=== PATIENT | male | born 1995 | race Caucasian/White ===

== ENCOUNTER → 2017-07-20 | Day surgery (SDC) | payer MEDICAID ==
[~2017-07-20] MED LIST: NORCO 5-325 TA1 EACH PO
--- NOTE | 2017-07-27 08:34 | OP ---
[address] [address] OPERATIVE REPORT Name: ALINE FITZGERALD Room: [facility]#: [id number] Admission: 07/20/17 Attend Phys: Sundeep Posada II Discharge: Date of : 89 Report #: [id number] THIS REPORT FOR: //name// CC: JOSE physician/PCP Sundeep Posada DATE OF SERVICE: 07/20/2017 PREOPERATIVE DIAGNOSES: 1. Right comminuted and displaced fracture of the base of the fourth metacarpal. 2. Fracture dislocation of the fifth metacarpal base. POSTOPERATIVE DIAGNOSES: 1. Right comminuted and displaced fracture of the base of the fourth metacarpal. 2. Fracture dislocation of the fifth metacarpal base. PROCEDURE: 1. Closed reduction with percutaneous pinning of comminuted displaced fourth metacarpal base fracture. 2. Closed reduction fracture dislocation of the fifth metacarpal base. SURGEON: Sundeep Posada II, DO. TRUCK CLEANER: ROSARIO Olmedo. ANESTHESIA: Per operative record. ESTIMATED BLOOD LOSS: Minimal. ANTIBIOTICS: Per operative record. DRAINS: None. COMPLICATIONS: None. CONDITION: Stable to recovery room. IMPLANTS USED: A 0.062 K-wire and Jurgan ball. DESCRIPTION OF PROCEDURE: The patient was taken to the operative suite carefully, placed supine on the operative table and given appropriate anesthesia. The patient had a well-padded tourniquet applied to the upper extremity, which was not inflated. Surgery began by evaluation of the hand and x-ray views of the fractures and dislocated areas. [place] [address] OPERATIVE REPORT Name: ALINE FITZGERALD Room: [facility].#: [id number] Admission: 07/20/17 Attend Phys: Sundeep Posada II Discharge: Date of : 89 Report #: [id number] reduction was then attempted closed of the 4th and 5th metacarpal fractures. The fifth metacarpal fracture reduced very well in alignment. Continued pressure encouraged the fourth metacarpal to reduce; however, there was still some instability at this fracture site due to its comminuted nature. Utilizing a 0.062 K wire, this was introduced through the distal portion of the fracture and the cortical bone. This was carried through the cortex and inserted into the carpal bone proximally in line with the fracture site. This is viewed in both the AP and lateral direction and showed excellent fixation and excellent position without any further displacement or movement of this fracture. The fifth metacarpal fracture remained stable with closed reduction. Final images were taken. The pin was then cut and Jurgan ball was applied with a Biopatch. A soft dressing and an ulnar gutter splint was then applied with hole digger tilt. Mateus wrap was then applied. The patient was then transported to the recovery room in stable condition. Counts were correct throughout the procedure. <ELECTRONICALLY SIGNED> By: Sundeep Posada II, DO 07/27/17 0834 [id number] Posada II, DO /nt
== END | disposition home or self-care (01) ==
LOC: M.SUR 09:21
DX: S62.314A Displaced fracture of base of fourth metacarpal bone, right hand, initial encounter for closed fracture (principal); S62.316A Displaced fracture of base of fifth metacarpal bone, right hand, initial encounter for closed fracture; X58.XXXA Exposure to other specified factors, initial encounter; Y93.9 Activity, unspecified; Y92.89 Other specified places as the place of occurrence of the external cause; Y99.9 Unspecified external cause status